=== PATIENT | female | born 1965 | race Caucasian/White ===

== ENCOUNTER → 2017-05-27 | Outpatient (CLI) | payer OTHER | LOC: CIMAGING 08:45 | PROVIDERS: ATTEND Internal Medicine | DX: Z12.31 Encounter for screening mammogram for malignant neoplasm of breast (principal); Z80.3 Family history of malignant neoplasm of breast | CPT/HCPCS: G0202 ==

== ENCOUNTER 2017-05-30 06:53 | Emergency (ER) | payer OTHER ==
--- NOTE | 2017-05-30 07:04 | EDPHY ---
Departure - Departure Referrals: Wendy Wilson MD [Primary Care Provider] - As per Instructions
[2017-05-30 07:07] VITALS: RESP 18; TEMP 98.1; O2SAT 98
--- NOTE | 2017-05-30 07:12 | EDPHY ---
H & P Stated Complaint: uterus pain and pressure, blood with urniation Time Seen by Provider: 05/30/17 07:06 HPI/ROS: CHIEF COMPLAINT: Uterine bleeding, hematuria HISTORY OF PRESENT ILLNESS: The patient presents to the ED with uterine bleeding and hematuria. The patient's symptoms developed over the past day. She did have a regular physical exam by her primary care provider several days ago. She underwent aspirate that time which was uncomplicated. The patient denies any melena. She does have a prior history of . The patient complains of some lower abdominal cramping. The patient denies dysuria. She denies additional acute complaints. REVIEW OF SYSTEMS: A comprehensive 10 point review of systems is otherwise negative aside from elements mentioned in the history of present illness. Source: Patient Exam Limitations: No limitations - Personal History LMP (Females 10-55): Post Menopausal - Medical/Surgical History Other PMH: postmenopausal since last may, c-sections, - Physical Exam Exam: General Appearance: Alert, no distress Eyes: Pupils equal and round no pallor or injection ENT, Mouth: Mucous membranes moist Respiratory: There are no retractions, lungs are clear to auscultation Cardiovascular: Regular rate and rhythm Gastrointestinal: Abdomen is soft and nontender, no masses, bowel sounds normal Pelvic: Normal external exam, speculum examination demonstrates no obvious vaginal laceration, blood in the vault or bleeding from the os Neurological: A&O, normal motor function, normal sensory exam, normal cranial nerves Skin: Warm and dry, no rashes Musculoskeletal: Neck is supple nontender Extremities: symmetrical, full range of motion Constitutional: Initial Vital Signs Temperature (C) 36.7 C 05/30/17 07:04 Heart Rate 96 05/30/17 07:04 Respiratory Rate 18 05/30/17 07:04 Blood Pressure 146/90 H 05/30/17 07:04 O2 Sat (%) 98 05/30/17 07:04 O2 Delivery Mode Room Air Allergies/Adverse Reactions: naproxen Allergy (Verified 05/30/17 07:08) Penicillins Allergy (Verified 05/30/17 07:07) Sulfa (Sulfonamide Antibiotics) Allergy (Verified 05/30/17 07:08) Home Medications: Medication Instructions Recorded Imipramine HCl 05/30/17 Phenazopyridine HCl [Pyridium 200 mg PO TID PRN #10 tab 05/30/17 200mg (RX)] levOFLOXACIN [Levaquin] 500 mg PO DAILY #5 tab 05/30/17 Medical Decision Making - Diagnostics Imaging Results: Pelvic ultrasound: No evidence of acute abnormality. Images reviewed by myself and discussed with radiologist Dr. Jose Ott. ED Course/Re-evaluation: The patient presents to the ED with hematuria, pelvic pain and questionable uterine bleeding following a pelvic exam performed earlier in the week. In the ED today I see no obvious source of bleeding on the patient's pelvic exam. The patient is noted to have hematuria and pyuria. I believe that her symptoms are secondary to cystitis. She otherwise has a benign abdominal examination. The patient did undergo a pelvic ultrasound which demonstrated . The patient will be treated with Levaquin for possible UTI. Patient is advised to follow up with her primary care provider for any unimproved symptoms. She should return to the emergency department for worsening pain or other concerns. At this point time I feel the etiology of her hematuria is infectious as she has no significant complaints of flank pain. Should she have any changing symptoms of progressive symptoms additional workup for nephrolithiasis may be indicated. Differential Diagnosis: Differential diagnosis considered includes urinary tract infection, nephrolithiasis, pyelonephritis, vaginal laceration, cervicitis - Data Points Laboratory Results: 05/30/17 07:30 Urine Color BROWN Urine Appearance CLOUDY Urine pH 5.5 (5.0-7.5) Ur Specific [place] 1.015 (1.002-1.030) Urine Protein 1+ H (NEGATIVE) Urine Ketones NEGATIVE (NEGATIVE) Urine Blood 3+ H (NEGATIVE) Urine Nitrate NEGATIVE (NEGATIVE) Urine Bilirubin NEGATIVE (NEGATIVE) Urine Urobilinogen 0.2 EU EU (0.2-1.0) Ur Leukocyte Esterase 1+ H (NEGATIVE) Urine RBC >182 /hpf H /hpf (0-3) Urine WBC 15-25 /hpf H /hpf (0-3) Ur Epithelial Cells 1+ /lpf /lpf (NONE-1+) Urine Bacteria 1+ /hpf H /hpf (NONE SEEN) Urine Glucose NEGATIVE (NEGATIVE) Departure - Departure Disposition: Home, Routine, Self-Care Clinical Impression: Urinary tract infection Condition: Good Instructions: Urinary Tract Infection in Women (ED) Additional Instructions: 1. Take antibiotics as directed for next 7 days for possible urinary tract infection. 2. Please return to the ED for increasing pain, fever, vomiting or other concerns. As this may be the sign of a worsening conditions such as a kidney infection or an undiagnosed conditions such as a kidney stone. 3. Pyridium as prescribed for pain 4. Please contact the emergency department tomorrow to check the results of your urine culture. Referrals: Wendy Wilson MD [Primary Care Provider] - As per Instructions Prescriptions: levOFLOXACIN [Levaquin] 500 mg PO DAILY #5 tab Phenazopyridine HCl [Pyridium 200mg (RX)] 200 mg PO TID PRN #10 tab PRN Reason: for painful urination
[2017-05-30 07:51] LABS: LEUKOCYTE ESTERASE,URINE 1+ (NEGATIVE); NITRITE,URINE NEGATIVE (NEGATIVE); PH,URINE 5.5 (5.0-7.5)
[2017-05-30 08:04] LABS: COLOR BROWN
[2017-05-30 08:10] LABS: BACTERIA 1+ /hpf (NONE SEEN); RBC,URINE >182 /hpf (0-3); WBC,URINE 15-25 /hpf (0-3)
[2017-05-30 14:04] VITALS: BP 133/84; PULSE 94
== END 2017-05-30 09:21 | disposition home or self-care (01) ==
LOC: CED 06:53
DX: N39.0 Urinary tract infection, site not specified (principal); B96.20 Unspecified Escherichia coli [E. coli] as the cause of diseases classified elsewhere
CPT/HCPCS: 76856-PO; 81003-PO; 81015-PO